=== PATIENT | male | born 1980 | race African-American/Black ===

== ENCOUNTER 2021-04-12 08:04 | Emergency (ER) | payer BC ==
[2021-04-12 09:00] LABS: Absolute Lymphocytes (CBC) 2.9 K/uL (0.7-4.9); Basophils % 0.9 % (0-1.3); Lymphocytes % 41.4 % (15.3-44.8); MPV 8.7 fL (7.6-11.3); Protime INR 1.32; RBC Red Blood Cell Count 4.46 M/uL (4.33-5.43)
--- NOTE | 2021-04-12 09:05 | RAD REPORT ---
EXAM DESCRIPTION: RAD - Chest Single View - 04/12/2021 8:53 am CLINICAL HISTORY: CHEST PAIN COMPARISON: <Comparisons> FINDINGS: Lines: None. Lungs: No evidence of edema or pneumonia. Pleural: No significant pleural effusions or pneumothorax. Cardiac: The heart size is within normal limits. Bones: No acute fractures. Other: IMPRESSION: No acute cardiopulmonary disease.
--- NOTE | 2021-04-12 09:18 | RAD REPORT ---
EXAM DESCRIPTION: CT - Head Brain Wo Cont - 04/12/2021 8:49 am CLINICAL HISTORY: HEADACHE COMPARISON: Chest Pa And Lat (2 Views) dated 01/19/2021; CHEST PA AND LAT 2 VIEW dated 07/04/2007No co mparisons TECHNIQUE: All CT scans are performed using dose optimization technique as appropriate and may inclu de automated exposure control or mA/KV adjustment according to patient size. FINDINGS: No intracranial hemorrhage, hydrocephalus or extra-axial fluid collection.No areas of brai n edema or evidence of midline shift. Trace right maxillary sinus thickening. The calvarium is intact. IMPRESSION: No acute intracranial abnormality.
[2021-04-12 09:25] LABS: ALT/SGPT 32 U/L (12-78); AST/SGOT 22 U/L (15-37); Albumin 3.9 g/dL (3.4-5.0); Alkaline Phosphatase 48 U/L (45-117); BUN Blood Urea Nitrogen 18 mg/dL (7-18); Bicarbonate 26 mmol/L (21-32); Bilirubin Direct < 0.1 mg/dL (0-0.2); Bilirubin Total 0.4 mg/dL (0.2-1.0); Glucose Level 114 mg/dL (74-106); Magnesium 2.2 mg/dL (1.8-2.4); NT PRO-BNP 16 pg/mL (<125); Potassium 4.1 mmol/L (3.5-5.1); Protein, Total 8.4 g/dL (6.4-8.2); Sodium Level 141 mmol/L (136-145); Troponin (Emerg Dept Use Only) < 0.02 ng/mL (0.0-0.045)
[2021-04-12 10:11] LABS: Blood Morphology Comment NOT SEEN (NOT SEEN); Platelet Estimate ADEQ; White Blood Cell Scan OK (OK)
--- NOTE | 2021-04-12 13:14 | ER ---
Nurse's Notes [facility] Name: Anil Brumfield Age: 41 yrs Sex: Male : 1980 Arrival Date: 04/12/2021 Time: 08:08 Bed 7 Private MD: Diagnosis: Chest pain, unspecified;Headache;Sub-Conjunctival hemorrhage Presentation: 04/12 08:24 Chief complaint: Patient states: had a weird headache last night and has some pain in iw right chest, woke up this morning and noticed her had a popped blood vessel in his right eye , headache has resolved but still having intermittent chest pains. Coronavirus screen: At this time, the client does not indicate any symptoms associated with coronavirus-19. Ebola Screen: Patient negative for fever greater than or equal to 101.5 degrees Fahrenheit, and additional compatible Ebola Virus Disease symptoms Patient denies exposure to infectious person. Patient denies travel to an Ebola-affected area in the 21 days before illness onset. No symptoms or risks identified at this time. Initial Sepsis Screen: Does the patient meet any 2 criteria? No. Patient's initial sepsis screen is negative. Does the patient have a suspected source of infection? No. Patient's initial sepsis screen is negative. Risk Assessment: Do you want to hurt yourself or someone else? Patient reports no desire to harm self or others. Onset of symptoms was April 11, 2021. 08:24 Method Of Arrival: Ambulatory iw 08:24 Acuity: TONI 3 iw Triage Assessment: 08:51 General: Appears in no apparent distress. Pain: Complains of pain in face. Neuro: jt3 Reports headache in right. 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 - Social history:: Smoking status: Patient denies any tobacco usage or history of. Screenin:47 Abuse screen: Denies threats or abuse. Denies injuries from another. Nutritional jt3 screening: No deficits noted. Tuberculosis screening: No symptoms or risk factors identified. Fall Risk None identified. Assessment: 08:47 General: Appears in no apparent distress. Behavior is calm, cooperative. Pain: jt3 Complains of pain in chest Pain radiates to chest Pain currently is 3 out of 10 on a pain scale. Quality of pain is described as throbbing, Pain began 1 day ago. Cardiovascular: Reports chest pain, Pt. reports right sided chest pain that he radiates 3/10. Alert and oriented x4. Pt. has right eye blood vessel that popped. since Last night. Heart tones S1 S2 Rhythm is sinus rhythm. Respiratory: No deficits noted. 10:23 Reassessment: Patient states feeling better. Patient states symptoms have improved. jt3 10:55 Reassessment:. jt3 Vital Signs: 08:24 BP 121 / 79; Pulse 55; Resp 16; Temp 97.4; Pulse Ox 95% on R/A; Weight 90.72 kg; Height iw 5 ft. 8 in. (172.72 cm); 10:36 BP 137 / 89; Pulse 55; Resp 15; Pulse Ox 95% on R/A; jt3 08:24 Body Mass Index 30.41 (90.72 kg, 172.72 cm) iw ED Course: 08:08 Patient arrived in ED. mr 08:26 Triage completed. iw 08:28 Arm band placed on. iw 08:29 Cristi Zarate, EVAN is Primary Nurse. jt3 08:30 Melvin Cervantes PA is PHCP. jmm 08:30 Milo Herbert MD is Attending Physician. [facility] 08:47 Patient has correct armband on for positive identification. Bed in low position. Call jt3 light in reach. Side rails up X2. environmental monitoring specialist on. Pulse ox on. NIBP on. 08:47 No provider procedures requiring assistance completed. Inserted saline lock: 20 gauge jt3 in right antecubital area, using aseptic technique. Patient maintains SpO2 saturation greater than 95% on room air. 08:49 CT Head Brain wo Cont In Process Unspecified. EDMS 08:53 XRAY Chest (1 view) In Process Unspecified. EDMS 13:59 IV discontinued, intact, bleeding controlled, No redness/swelling at site. Pressure iw dressing applied. Administered Medications: No medications were administered Outcome: 13:14 Discharge ordered by MD. jmm 13:59 Discharged to home ambulatory. iw 13:59 Condition: good 13:59 Discharge instructions given to patient, Instructed on discharge instructions, follow up and referral plans. Demonstrated understanding of instructions, follow-up care. 13:59 Patient left the ED. iw Signatures: Dispatcher [employer] EDMelvin Barber PA PA jmm Rivera, Mary mr Williams, Irene RN EVAN iw Cristi Zarate RN RN jt3 Corrections: (The following items were deleted from the chart) 08:28 08:26 Home Meds: None; iw iw
--- NOTE | 2021-04-12 13:15 | EDPHYS ---
Physician Documentation [facility] Name: Anil Brumfield Age: 41 yrs Sex: Male : 1980 Arrival Date: 04/12/2021 Time: 08:08 Bed 7 Private MD: Milo Cordoba HPI: 04/12 08:31 This 41 yrs old Black Male presents to ER via Ambulatory with complaints of Chest Pain, jmm Headache, Redness of Eye. 08:31 The patient or guardian reports chest pain that is located primarily in the substernal [facility] area. Onset: gradually. The pain does not radiate. Associated signs and symptoms: Pertinent positives: headache. The chest pain is described as aching. Is a 41-year-old male with history of autoimmune hepatitis and presents emerged department with complaints of a mild left-sided headache. Patient noticed a ruptured blood vessel in his right eye this morning. Patient also states having some mild chest pain which lasted for a few seconds at a time ongoing since last night.. 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 - Social history:: Smoking status: Patient denies any tobacco usage or history of. ROS: 08:31 Constitutional: Negative for fever, chills, and weight loss. jm 08:31 Eyes: Positive for redness. 08:31 Cardiovascular: Positive for chest pain. 08:31 Neuro: Positive for headache. 08:31 All other systems are negative. Exam: 08:31 Constitutional: This is a well developed, well nourished patient who is awake, alert, jmm and in no acute distress. Head/Face: atraumatic. 08:31 Neck: Trachea midline, Supple Chest/axilla: Normal chest wall appearance and motion. 08:31 Abdomen/GI: Non distended, soft Back: Normal ROM Skin: General appearance color normal MS/ Extremity: Moves all extremities, no obvious deformities appreciated, no edema noted to the lower extremities Neuro: Awake and alert, normal gait Psych: Behavior is normal, Mood is normal, Patient is cooperative and pleasant 08:31 Eyes: Sclera: Right-sided conjunctival hemorrhage. 08:31 Cardiovascular: Rate: normal, Rhythm: regular. 08:31 Respiratory: the patient does not display signs of respiratory distress, Respirations: normal, Breath sounds: are clear throughout. Vital Signs: 08:24 BP 121 / 79; Pulse 55; Resp 16; Temp 97.4; Pulse Ox 95% on R/A; Weight 90.72 kg; Height iw 5 ft. 8 in. (172.72 cm); 10:36 BP 137 / 89; Pulse 55; Resp 15; Pulse Ox 95% on R/A; jt3 08:24 Body Mass Index 30.41 (90.72 kg, 172.72 cm) iw MDM: 08:31 Patient medically screened. rom 13:13 Data reviewed: vital signs, nurses notes. Counseling: I had a detailed discussion with [facility] the patient and/or guardian regarding: the historical points, exam findings, and any diagnostic results supporting the discharge/admit diagnosis, lab results, radiology results, the need for outpatient follow up, to return to the emergency department if symptoms worsen or persist or if there are any questions or concerns that arise at home. 11 08:31 Order name: Basic Metabolic Panel [facility] 04/12 08:31 Order name: CBC with Diff [facility] 04/12 08:31 Order name: LFT's [facility] 04/12 08:31 Order name: Magnesium [facility] 04/12 08:31 Order name: NT PRO-BNP [facility] 04/12 08:31 Order name: PT-INR; Complete Time: 09:01 [facility] 04/12 08:31 Order name: Troponin (emerg Dept Use Only); Complete Time: 10:02 [facility] 04/12 08:31 Order name: Basic Metabolic Panel; Complete Time: 10:02 [facility] 04/12 08:31 Order name: CBC with Automated Diff; Complete Time: 10:34 [facility] 04/12 08:31 Order name: Liver (Hepatic) Function; Complete Time: 10:02 [facility] 04/12 08:31 Order name: Magnesium; Complete Time: 10:02 [facility] 04/12 08:31 Order name: NT PRO-BNP; Complete Time: 10:02 [facility] 04/12 10:11 Order name: CBC Smear Scan; Complete Time: 10:34 [facility] 04/12 12:09 Order name: Troponin (emerg Dept Use Only); Complete Time: 13:12 [facility] 04/12 08:31 Order name: XRAY Chest (1 view); Complete Time: 09:07 [facility] 04/12 08:31 Order name: EKG; Complete Time: 08:31 [facility] 04/12 08:31 Order name: Cardiac monitoring; Complete Time: 08:46 [facility] 04/12 08:31 Order name: EKG - Nurse/Tech; Complete Time: 09:00 [facility] 04/12 08:31 Order name: IV Saline Lock; Complete Time: 08:46 [facility] 04/12 08:31 Order name: Labs collected and sent; Complete Time: 08:46 [facility] 04/12 08:31 Order name: O2 Per Protocol; Complete Time: 08:46 [facility] 04/12 08:31 Order name: O2 Sat Monitoring; Complete Time: 08:46 [facility] 04/12 08:31 Order name: CT Head Brain wo Cont; Complete Time: 09:20 [facility] Administered Medications: No medications were administered Disposition: 23:12 Co-signature as Attending Physician, Milo Herbert MD I agree with the assessment and rom plan of care. Disposition Summary: 04/12/21 13:14 Discharge Ordered Location: Home [facility] Condition: Stable jmm Diagnosis - Chest pain, unspecified jmm - Headache jmm - Sub-Conjunctival hemorrhage jmm Followup: jm - With: Private Physician - When: 2 - 3 days - Reason: Recheck today's complaints, Continuance of care, Re-evaluation by your physician Discharge Instructions: - Discharge Summary Sheet jmm - Nonspecific Chest Pain, Adult jmm - General Headache Without Cause jm Forms: - Medication Reconciliation Form [facility] - Thank You Letter jmm - Antibiotic Education jmm - Prescription Opioid Use jmm - Work release form iw Signatures: Dispatcher [employer] Milo Hull MD MD cha Mickail, Joel, PA PA jmm Williams, Irene, RN RN iw Corrections: (The following items were deleted from the chart) 08:28 08:26 Home Meds: None; iw iw
[2021-04-12 14:54] VITALS: TEMP 97.4; O2SAT 95
[2021-04-12 14:55] VITALS: BP 137/89
--- NOTE | 2021-04-13 13:15 | EKG ---
Test Date: 2021-04-12 Test Time: 08:58:46 Manager Party: OMAR MEASUREMENT RESULTS: Intervals: Rate: 47 GA: 194 QRSD: 84 QT: 420 QTc: 371 [place]: P: 32 GA: 194 QRS: 71 T: 28 INTERPRETIVE STATEMENTS: Marked sinus bradycardia ST elevation, consider early repolarization, pericarditis, or injury Nonspecific T wave abnormality Abnormal ECG No previous ECG available for comparison Electronically Signed On 04-13-21 13:10:47 CDT by Ruperto Engle
--- OUTSIDE RECORDS SUMMARY | 2021-04-23 07:41 | XMS REPORT | Continuity of Care Document ---
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 Doctor Unassigned, Name Attending Clinician Unavailable Payers Payer Name Policy Type Policy Number Effective Date Expiration Date S ource Problems Condition Condition Condition Status Onset Resolution Last Treating Co mments Source Name Details Category Date Date Treatment Clinician Date BACK PAIN Diagnosis Active 2016-07-13 Memoria 07-11 13:36:00 l BACK 00:00: [place] PAIN 00 Active 07/11/2016 [facility] one kidney one kidney Disease Active U nivers 7-20 ity of 00:00: [place] [id number] Medical Branch Acute Problem Resolve 2016-07-14 Dalton lore pancreatit d 04:37:00 l is Acute [place] (disorder) pancreatit is (disorder) Resolved Problem 07/14/2016 [facility] Hypertensi Problem Active 2016-07-14 M emoria ve 04:37:00 l disorder, Zachary systemic Hypertensi arterial ve (disorder) disorder, systemic arterial (disorder) Active Problem 07/14/2016 [facility] History of Past Illness Condition Condition Condition Status Onset Resolution Last Treating Co mments Source Name Details Category Date Date Treatment Clinician Date Discharge Problem 2016-07-14 2016-07-14 Memoria Diagnosis: 07-11 04:37:00 04:37:00 l Abdominal 06:00: Zachary pain Discharge 00 Diagnosis: Abdominal pain 07/11/2016 07/14/2016 [facility] Allergies, Adverse Reactions, Alerts Allergy Allergy Status Severity Reaction(s) Onset Inactive Treating Comm ents Source Name Type Date Date Clinician NO KNOWN Drug Active Univers ALLERGIE Class ity of S [facility] Social History Social Habit Start Date Stop Date Quantity Comments Source Exposure to Not sure [facility] SARS-CoV-2 [facility] (event) Branch Alcohol intake 2010-12-28 2010-12-28 Current drinker Unive rsity of 00:00:00 00:00:00 of alcohol [facility] (finding) Branch Sex Ass[birth year] At [birth year] Universit y of 00:00:00 00:00:00 [facility] Smoking Status Start Date Stop Date Source Social History [facility] Medications Ordered Filled Start Stop Current Ordering Indication Dosage Frequency Signature Comments Components Source Medication Medication Date Date Medication? Clinician (SIG) Name Name Famotidine No Notes: Memor ia 20 MG Oral 2- (Same as: l Tablet 15:00: Pepcid) Zachary [Pepcid] 00 Famotidine Yes 20 mg = 1 Me moria 20 MG Oral 2-01 tab, PO, l Tablet 02:10: BID, # 60 Andrea n 00 tab, 0 Refill(s) Simethicone No Notes: Dalton lore 2- (Same as: l 00:16: Mylicon, Zachary 00 Phazyme, Genasyme) Bentyl No Notes: Memoria 2- (Same as: l 00:13: Bentyl) Zachary GI cocktail No 30 mL, Dalton lore 2- Route: PO, l 00:12: Dosing [place] 00 Weight 88.636, kg, ONCE, STAT, Start date: 07/11/16 18:12:00 [employer], Stop date: 07/11/16 18:12:00 [employer] GI cocktail No Notes: Dalton lore - G.I. l 21:39: Cocktail = Zachary antacid with simethicon e 22.5 mL - lidocaine viscous 7.5 mL Famotidine No Notes: Memor ia 07-11 (Same as: l 21:39: Pepcid) Can be dilute in 5-10cc NS IVP: Slow IV push over at least 2 minutes. Hydromorpho No Notes: Dalton lore ne 07-11 Same as: l 21:17: Dilaudid Ondansetron No Notes: Dalton lore 07-11 (Same as: l 21:17: Zofran) MEDICATION WASTE Product Size: 4 mg Product Wasted: ___ mg psyllium Yes .52g Take 1 Cap Uni vers (METAMUCIL) 7-20 by mouth ity of 0.52 g 00:00: daily. [place] capsule [facility] paroxetine Yes 10mg Take 1 Tab U nivers (PAXIL) 10 7-20 by mouth ity o f mg tablet 00:00: daily. [facility] psyllium Yes .52g Take 1 Cap Uni vers (METAMUCIL) 7-20 by mouth ity of 0.52 g 00:00: daily. [place] capsule [facility] paroxetine Yes 10mg Take 1 Tab U nivers (PAXIL) 10 7-20 by mouth ity o f mg tablet 00:00: daily. [facility] psyllium Yes .52g Take 1 Cap Uni vers (METAMUCIL) 7-20 by mouth ity of 0.52 g 00:00: daily. [place] capsule [facility] paroxetine Yes 10mg Take 1 Tab U nivers (PAXIL) 10 7-20 by mouth ity o f mg tablet 00:00: daily. [facility] psyllium Yes .52g Take 1 Cap Uni vers (METAMUCIL) 7-20 by mouth ity of 0.52 g 00:00: daily. [place] capsule [facility] paroxetine Yes 10mg Take 1 Tab U nivers (PAXIL) 10 7-20 by mouth ity o f mg tablet 00:00: daily. [facility] psyllium Yes .52g Take 1 Cap Uni vers (METAMUCIL) 7-20 by mouth ity of 0.52 g 00:00: daily. [place] capsule [facility] paroxetine Yes 10mg Take 1 Tab U nivers (PAXIL) 10 7-20 by mouth ity o f mg tablet 00:00: daily. [address] psyllium Yes .52g Take 1 Cap Uni vers (METAMUCIL) 7-20 by mouth ity of 0.52 g 00:00: daily. [place] capsule [address] [place] [address] paroxetine Yes 10mg Take 1 Tab U nivers (PAXIL) 10 7-20 by mouth ity o f mg tablet 00:00: daily. [address] psyllium Yes .52g Take 1 Cap Uni vers (METAMUCIL) 7-20 by mouth ity of 0.52 g 00:00: daily. [address] paroxetine Yes 10mg Take 1 Tab U nivers (PAXIL) 10 7-20 by mouth ity o f mg tablet 00:00: daily. [address] Immunizations Ordered Immunization Filled Immunization Date Status Commen ts Source Name Name haemophilus b 2006-09-06 Completed [facility] conjugate (PRP-T) 01:58:00 [place] vaccine influenza virus 2006-09-01 Completed [facility] vaccine, inactivated 23:30:00 Herm estee pneumococcal 2006-08-26 Completed [facility] 23-valent 22:30:00 [place] vaccine<sup>2</sup> meningococcal 2006-08-26 Completed [facility] polysaccharide 22:30:00 [place] vaccine<sup>1</sup> influenza virus 2006-08-26 Completed [facility] vaccine, inactivated 22:30:00 Herm estee Vital Signs Vital Name Observation Time Observation Value Comments Source Respitory Rate 2016-07-12 02:37:00 Memori al [place] Temperature Oral (F) 2016-07-12 02:37:00 97.7 F [facility] [place] Systolic (mm Hg) 2016-07-12 02:37:00 Dalton rial [place] Diastolic (mm Hg) 2016-07-12 02:37:00 Mem orial [place] Systolic (mm Hg) 2016-07-11 23:45:00 Dalton rial [place] Diastolic (mm Hg) 2016-07-11 23:45:00 Mem orial [place] Respitory Rate 2016-07-11 23:45:00 Memori al [place] Temperature Oral (F) 2016-07-11 23:45:00 98 F [facility] Systolic (mm Hg) 2016-07-11 21:30:00 Dalton patricia [place] Diastolic (mm Hg) 2016-07-11 21:30:00 Mem orial [place] Respitory Rate 2016-07-11 21:30:00 Evelio loyd [place] Temperature Oral (F) 2016-07-11 19:20:00 97.5 F [facility] Weight 2016-07-11 19:20:00 [facility] [place] Heart Rate 2016-07-11 19:20:00 [facility] [place] Procedures This patient has no known procedures. Encounters Start End Encounter Admission Attending Care Care Encounter Source Date/Time Date/Time Type Type Clinicians Facility Department ID 2021-02-07 2021-02-07 Telephone GRUPO Squires [id number] Univers 00:00:00 00:00:00 Anedaphnee NELSON [id number] ity of [facility] [id number] Quinn as [phone] [facility] [address] 2021-02-05 2021-02-05 Laboratory Only, Ang Db Test [facility] [id number] Univers 15:08:49 15:23:49 Only [facility] [id number] ity of [place] [id number] Quinn as Hai?Blea [id number] [address] Medical Office Building 2021-02-05 2021-02-05 Outpatient R [facility] [id number] Univers 15:00:00 15:00:00 ity of [facility] 2021-02-05 2021-02-05 Letter Doctor LOMBARDO [id number] Univers 00:00:00 00:00:00 (Out) Unassigned, NELSON [id number] ity of [place] [facility] [id number] Quinn as [phone] [address] 2021-02-05 2021-02-05 Letter Doctor LOMBARDO [id number] Univers 00:00:00 00:00:00 (Out) Unassigned, NELSON [id number] ity of [place] [facility] [id number] Quinn as [phone] [facility] 044 Branch 2016-07-11 2016-07-12 Emergency nullFlavo [facility] [id number] Memoria 19:18:00 02:48:00 r [facility] 01 l [facility] [place] Results Test Description Test Time Test Comments Results Result Sourc e Comments URINE AND STOOL 2016-07-12 Yellow [facility] 01:05:00 *NA*(07/11/16 Zachary 7:05 PM) URINE AND STOOL 2016-07-12 None Seen [facility] 01:05:00 (07/11/16 7:05 [place] PM) URINE AND STOOL 2016-07-12 None Seen [facility] 01:05:00 (07/11/16 7:05 [place] PM) URINE AND STOOL 2016-07-12 Negative [facility] 01:05:00 (07/11/16 7:05 [place] PM) URINE AND STOOL 2016-07-12 0.2 Memorial 01:05:00 [place] URINE AND STOOL 2016-07-12 Negative [facility] 01:05:00 *NA*(07/11/16 [place] 7:05 PM) URINE AND STOOL 2016-07-12 Negative [facility] 01:05:00 *NA*(07/11/16 [place] 7:05 PM) URINE AND STOOL 2016-07-12 Trace [facility] 01:05:00 *ABN*(07/11/16 Zachary 7:05 PM) URINE AND STOOL 2016-07-12 01:05:00 Test Item Value Reference Range Interpretation Comme nts UA pH (test code = UA pH) 6.5 1 5.0-8.0 [facility] [id number] 01:05:00 Test Item Value Reference Range Interpretation Comments UA Spec Grav (test code = UA Spec 1.020 1 Grav) [facility] MHOPA4943-17-28 01:05:00Clear (07/11/16 7:05 PM) [facility] BJZIE3620-27-42 01:05:00Negative (07/11/16 7:05 PM) [facility] DUIDY8005-05-95 01:05:00None Seen (07/11/16 7:05 PM) [facility] RVTON3798-17-36 01:05:00Performed (07/11/16 7:05 PM) [facility] CAGJX9001-98-92 01:05:00Negative (07/11/16 7:05 PM) [facility] GKDVY1434-57-81 01:05:00Negative (07/11/16 7:05 PM) [facility] GvurueaHZDKYUAKEG8658-58-91 22:10:0042.2[facility]annHEMATOLOGY 2016-07-11 22:10:0086.8[facility] QgbqvjcATFHZSLEMT5953-01-03 22:10:008.1[facility] OlydqzrVOQURDOHVZ2049-74-69 22:10:0013.6[facility] YwlaabaMQBPQWAIAU3533-48-60 22:10:99662Sdbuylqm XaqqijzOYRAHPHJJY9245-26-56 22:10:0032.3[facility] PRICGAUZEX2065-94-05 22:10:0013.6[facility] JfwulakTIFXATUNNQ2663-20-72 22:10:00 Test Item Value Reference Range Interpretation Comments MCH (test code = MCH) 28.0 pg 27.0-31.0 [facility] AxpdpnbPGQCSUPHSY4415-11-55 22:10:004.9[facility] HermannHEMATOLOGY 2016-07-11 22:10:001.0[facility] WqhkgflWBDKMELTPO2031-48-70 22:10:000.1[facility] LnzwzolYUBNUCYQOC0357-10-66 22:10:000.3[facility] TdusiceOYZOOZHQMP2922-59-30 22:10:000.9[facility] BtucdzvZQYELCTRBI0381-52-83 22:10:004.4[facility] KRNIPTMLHA7505-85-69 22:10:009.7[facility] LjbcrdxJYVCNSEPNU2634-28-61 22:10:002.7 [facility] ClkrfwlCCHGOHHUSE5045-78-63 22:10:0045.6[facility] HermannHEMATOLOGY 2016-07-11 22:10:0041.1[facility] HermannCHEM SMRSO1106-17-89 22:10:001.0[facility] HermannCHEM QHXJC5186-67-82 22:10:16045Cjwybyoz HermannCHEM WQWVG2146-94-89 22:10:000.3[facility] HermannCHEM EQPUE7932-20-98 22:10:000.8[facility] HermannCHEM FCBNY1346-03-74 22:10:004.5[facility] HermannCHEM FJKNN4728-34-47 22:10:0047 [facility]annCHEM YPSRX2951-20-28 22:10:0032[facility] HermannCHEM PANEL 2016-07-11 22:10:000.4[facility] HermannCHEM JZRDS0064-59-22 22:10:000.1[facility] HermannCHEM YEOJY5231-48-51 22:10:0041[facility] HermannCHEM ZHBKH8333-09-16 22:10:008.3[facility] HermannCHEM OMLBZ4316-64-05 22:10:003.8[facility] HermannCHEM ZROIZ3724-91-29 22:10:0067[facility] HermannCHEM XKCRN8580-96-69 22:10:009.1 [facility]annCHEM EFGDU4206-02-83 22:10:0097[facility] HermannCHEM PANEL 2016-07-11 22:10:89370Wzkrndzi HermannCHEM OWTLO3536-05-27 22:10:0015[facility] HermannCHEM ZLREO6846-31-28 22:10:001.50[facility] HermannCHEM LYVVU8782-55-30 22:10:0011.6[facility] HermannCHEM PYYJK3379-98-62 22:10:0026[facility] HermannCHEM YWMJV2397-79-39 22:10:25978Hyhypdoe HermannCHEM VJJWY9180-00-31 22:10:003.6 Memorial SgcgersYEOFUXHCFN0134-09-46 22:10:0010.7[facility] HermannHEMATOLOGY 2016-07-11 22:10:004.86[facility] HermannCHEM BWHQU6508-12-81 19:40:96468Iholoqgd XzecfrlMBZJFQUEQYEN7900-42-15 19:40:2915.8[facility] PsgfnilYYIGZMNGAAID6863-62-76 19:40:299[facility] YzigmvnURHTPIJFWJIX1138-21-71 19:40:294.6[facility] SWRMVQLOBTFZ1227-47-92 19:40:290.9[facility] NttyimnUILQPFPHVCQL3050-68-29 19:40:2963[facility] FjkbdgpDTTLDYAQQACO8836-63-24 19:40:52500Cjpuyvxs [place] VVCEPGGGFYNH3988-12-49 19:40:2914[facility] UnrbcxjQJULDACRENKO2721-76-40 19:40:29 1.59Memorial RtapojkINHVHJNZRHFR9918-17-67 19:40:293.8[facility] EVVCRREQOGKL4504-86-76 19:40:299.2[facility] DspzcggNUUVMICWCTYN6582-99-25 19:40:34969Mlsqxwbd AzeozigFSJNTABRTXMH6728-53-68 19:40:00082Odvrywme Zachary MZDDNXCQWBSY1326-96-01 19:40:2925Memorial DxnuioeDVYJCTLFXNJT9813-16-77 19:40:29 42[facility] GrpxbttVPICOFAHJWLW0025-79-91 19:40:2949[facility] HermannELECTROLYTES 2016-07-11 19:40:2939Mem[facility] KglqinbOTKFMRNAGOQT9323-10-52 19:40:290.6[facility]orial GgedxavLLZAHRAKNOGG0220-87-61 19:40:298.6[facility] NrysgmvPVKIQLBNQFZT5908-92-59 19:40:294.0[facility] YhdhxwyPHOOGYKLZU4180-50-34 19:40:2949.5[facility] [place] UBJDPWJWYQ9763-47-84 19:40:2938.5[facility]orial ZmgtqxdYUXSGHDQEB4532-97-32 19:40:29 2.5[facility]orial EgyzjucRSKVRIDUUT5971-16-58 19:40:298.8[facility] HermannHEMATOLOGY 2016-07-11 19:40:290.7[facility] WnglcagPXENKQLWDC2948-98-90 19:40:294.3[facility]orial MbdmubuGWCZQSQKUT1543-72-72 19:40:291.0[facility] KnmbczuTYEUREKWST9826-05-85 19:40:295.5[facility] NdoiufmGLPBURVUJH9762-89-98 19:40:290.3[facility] [place] UYWNXEINGW9575-54-81 19:40:290.1[facility] PisyyxtLLQAPYFGQC0376-93-90 19:40:29 4.90[facility]orial BbjpbonYLWABDBYWK0669-23-04 19:40:2911.0[facility] HermannHEMATOLOGY 2016-07-11 19:40:2986.3[facility] TqekloiCJDPUGRRMJ3433-91-62 19:40:29 Test Item Value Reference Range Interpretation Comments MCH (test code = MCH) 28.1 pg 27.0-31.0 Memorial CeyggvuHIKXFCGDMN0618-04-34 19:40:2942.3[facility] HermannHEMATOLOGY 2016-07-11 19:40:2913.8[facility] TaxdietJOLWJEJQDI2946-29-63 19:40:2913.5[facility] UznhzfnUDDFHQSAMJ1976-42-25 19:40:2932.6[facility] LuvkncvNIYKYPMNYJ1225-51-91 19:40:09867Mdrnggdt OxbgltpNFMUSXLALP9200-02-37 19:40:298.5[facility]
== END 2021-04-12 13:59 | disposition home or self-care (01) ==
LOC: ER 08:04
DX: R07.9 Chest pain, unspecified (principal); H11.31 Conjunctival hemorrhage, right eye
CPT/HCPCS: 36415; 70450; 71045; 80048; 80076; 83735; 83880; 84484; 85025; 85610; 93005; 99284